=== PATIENT | male | born 1970 | race Caucasian/White ===

== ENCOUNTER 2016-07-27 17:39 | Emergency (ER) | payer OTHER ==
[~2016-07-27] VITALS: Ht 180.3 cm; Wt 68.7 kg
[~2016-07-27 17:39] MED LIST: KEFLEX500 MG PO; LEVOTHYROXINE175 MCG PO; LIBRIUM25 MG PO; MOTRIN600 MG PO; SERTRALINE HCL100 MG PO; THIAMINE HCL100 MG PO
[2016-07-27 18:32] LABS: HEMATOCRIT 41.9 % (38.0-50.0); MCH 31.3 PG (29.0-34.0); MCHC 33.7 G/DL (30.0-36.0); MCV 92.9 FL (86-99); MEAN PLAT.VOLUME 9.4 uM^3 (9.0-12.4); PLATELET COUNT 291 K/uL (156-360); RBC DIS.WIDTH-CV 12.7 % (11.8-14.6); RBC DIS.WIDTH-SD 43.8 % (39-53); RED BLOOD COUNT 4.51 M/uL (4.00-5.50); WHITE BLOOD COUNT 7.5 K/uL (4.1-10.2)
[2016-07-27 18:40] LABS: CHLORIDE 104 mEq/L (99-109); POTASSIUM 3.8 mEq/L (3.7-5.4); SODIUM 142 mEq/L (136-147)
[2016-07-27 18:42] LABS: GLUCOSE 89 mg/dL (70-99)
[2016-07-27 18:43] LABS: ANION GAP 12 MEQ/L (2-14)
[2016-07-27 18:45] LABS: SERUM ETHYL ALCOHOL 149 mg/dL
[2016-07-27 18:46] LABS: GFR ESTIMATE (CALCULATED) > 59 mL/min/; UREA NITROGEN (BUN) 8 mg/dL (9-23)
[2016-07-27 19:27] VITALS: BP 133/86
== END 2016-07-27 19:28 | disposition home or self-care (01) ==
LOC: EME 17:39
PROVIDERS: Emergency Medicine
DX: F10.129 Alcohol abuse with intoxication, unspecified (principal); Y90.6 Blood alcohol level of 120-199 mg/100 ml; F39 Unspecified mood [affective] disorder; F33.9 Major depressive disorder, recurrent, unspecified; Z87.891 Personal history of nicotine dependence
CPT/HCPCS: 80048; 81003; 85027; 90837; 99281; 99285; G0480